=== PATIENT | male | born 1965 | race Caucasian/White ===

== ENCOUNTER 2018-02-12 12:30 | Emergency (ER) | payer MEDICAID, OTHER ==
[2018-02-12 13:08] VITALS: BP 143/77
--- NOTE | 2018-02-12 13:42 | UC ---
Skin Complaint HPI - HPI Summary HPI Summary: 53-year-old male with history of OCD, migraines, kidney stones, presents with 1 week of pain to the left lateral buttock and mid gluteal cleft with swelling in those areas. Pain is sharp, nonradiating, worse with palpation. Associated with redness around those areas. Similar prior episodes. - History of Current Complaint Chief Complaint: UCGeneralIllness Stated Complaint: SKIN COMPLAINT,POSSIBLE HERNIA Pain Intensity: 10 - Allergy/Home Medications Allergies/Adverse Reactions: Allergies Allergy/AdvReac Type Severity Reaction Status Date / Time gabapentin Allergy GI Upset Verified 02/12/18 13:05 sumatriptan [From Imitrex] Allergy Anaphylatic Verified 02/12/18 13:05 Shock Home Medications: Home Medications Budesonide/Formote 80/4.5(NF) [Symbicort 80/4.5 (NF)] 02/12/18 [History] Ibuprofen 800 mg PO Q8H 02/12/18 [History Confirmed 02/12/18] Omeprazole 20 mg PO DAILY 02/12/18 [History Confirmed 02/12/18] Review of Systems Constitutional: Negative Skin: Rash Respiratory: Negative Cardiovascular: Negative Gastrointestinal: Negative Neurovascular: Negative Musculoskeletal: Negative Neurological: Negative Psychological: Anxious All Other Systems Reviewed And Are Negative: Yes PMH/Surg Hx/FS Hx/Imm Hx - Additional Past Medical History Additional PMH: Migraines, OCD Previously Healthy: Yes - Surgical History Surgical History: Yes Surgery Procedure, Year, and Place: KNEE SCOPE. FACIAL RECONSTRUCTION SURGERY - Social History Alcohol Use: None Substance Use Type: None Smoking Status (MU): Heavy Every Day Tobacco Smoker Physical Exam - Summary Physical Exam Summary: Gen: alert, in no acute distress HEENT: EOMI, normocephalic, atruamatic Neck: supple, no masses CV: Normal s1 s2, no murmurs Resp: normal breath sounds b/l GI: no tenderness, no masses : Reducible hernia along the left groin, nontender to palpation, soft Musculoskeletal: normal ROM all 4 extremities Neuro: no obvious focal neurological deficits Skin: Round area of induration and redness consistent with cellulitis on the left buttock measuring approximately 3 cm in diameter; small round area of induration along the upper gluteal cleft without fluctuance Lymph: no lymphadenopathy Psych: appropriate affect, anxious appearing Triage Information Reviewed: Yes Vital Signs: Initial Vital Signs Temp 36.7 C 02/12/18 13:01 Pulse 85 02/12/18 13:01 Resp 21 02/12/18 13:01 BP 143/77 02/12/18 13:01 Pulse Ox 100 02/12/18 13:01 Course/Dx - Course Course Of Treatment: Patient has left-sided buttock and gluteal cleft rash consistent with cellulitis and pilonidal cyst. No fluctuance, rash along the gluteal cleft appears very new without any fluid accumulation. Incision and drainage is not indicated at this time. Patient started on oral antibiotics and given short course of pain medication, patient agrees to and understands discharge instructions. Patient also given referral to general surgery for elective hernia repair. - Diagnoses Provider Diagnoses: Left-sided inguinal reducible hernia without incarceration. Pilonidal cyst. Cellulitis Discharge - Sign-Out/Discharge Documenting (check all that apply): Patient Departure All imaging exams completed and their final reports reviewed: No Studies - Discharge Plan Condition: Stable Disposition: HOME Prescriptions: Cephalexin CAP* [Keflex CAP*] 500 mg PO QID #28 cap oxyCODONE/Acetamin 5/325 MG* [Percocet 5/325 TAB*] 1 tab PO Q6H PRN #8 tab MDD 3 PRN Reason: Pain - Moderate To Severe Sulfamethox/Trimethoprim DS* [Bactrim DS 800/160 TAB*] 1 tab PO BID #14 tab Patient Education Materials: Pilonidal Cyst (ED), Cellulitis (DC) Referrals: Tania Teran MD [Primary Care Provider] - Blu Kong [Medical Doctor] - Additional Instructions: PLEASE TAKE MEDICATIONS DIRECTED PLEASE FINISH FULL COURSE OF ANTIBIOTIC PLEASE MAKE AN APPOINTMENT TO BE SEEN BY A PRIMARY CARE DOCTOR AND GENERAL SURGEON WITHIN 1-2 WEEKS PLEASE REPORT TO THE ER FOR ANY WORSENING OR CONCERNING SYMPTOMS - Billing Disposition and Condition Condition: STABLE Disposition: Home
== END 2018-02-12 13:49 | disposition home or self-care (01) ==
LOC: UCCORT 12:30
DX: K40.90 Unilateral inguinal hernia, without obstruction or gangrene, not specified as recurrent (principal); L05.91 Pilonidal cyst without abscess; L03.317 Cellulitis of buttock; Z88.8 Allergy status to other drugs, medicaments and biological substances; F17.210 Nicotine dependence, cigarettes, uncomplicated
CPT/HCPCS: 99212; G0463

== ENCOUNTER 2018-02-14 13:59 | Emergency (ER) | payer OTHER ==
[2018-02-14 14:42] VITALS: BP 131/86
[2018-02-14] MEDS ORDERED: Lidocaine 1%* 5 ML VIAL INJ ONE (15:10)
--- NOTE | 2018-02-14 15:58 | UC ---
Skin Complaint HPI - HPI Summary HPI Summary: 53-year-old male coming in today because of buttock abscesses. He's been on antibiotics and the overall area is improving. There is an abscess on the left buttock and at the superior aspect of the gluteal cleft. It was not I&D prior as it was too diffuse patient feels that they may be ready for drainage now. No fevers still quite painful. - History of Current Complaint Chief Complaint: UCSkin Time Seen by Provider: 02/14/18 15:02 Stated Complaint: RECHECK-BACK PAIN Pain Intensity: 8 - Allergy/Home Medications Allergies/Adverse Reactions: Allergies Allergy/AdvReac Type Severity Reaction Status Date / Time gabapentin Allergy GI Upset Verified 02/14/18 14:42 sumatriptan [From Imitrex] Allergy Anaphylatic Verified 02/14/18 14:42 Shock Review of Systems Constitutional: Negative Skin: Other - See history of present illness Eyes: Negative ENT: Negative, Dental Pain Cardiovascular: Negative Gastrointestinal: Negative, Other - Chronic left hernia Motor: Negative Neurovascular: Negative Musculoskeletal: Negative Neurological: Negative Psychological: Negative Is Patient Immunocompromised?: No All Other Systems Reviewed And Are Negative: Yes PMH/Surg Hx/FS Hx/Imm Hx - Surgical History Surgical History: Yes Surgery Procedure, Year, and Place: KNEE SCOPE. FACIAL RECONSTRUCTION SURGERY - Family History Known Family History: Positive: Unknown - Social History Alcohol Use: None Substance Use Type: None Smoking Status (MU): Heavy Every Day Tobacco Smoker Physical Exam Triage Information Reviewed: Yes Appearance: Well-Appearing, Pain Distress - MILD Vital Signs: Initial Vital Signs Temp 98.3 F 02/14/18 14:39 Pulse 104 02/14/18 14:39 Resp 18 02/14/18 14:39 BP 131/86 02/14/18 14:39 Pulse Ox 99 02/14/18 14:39 Vital Signs Reviewed: Yes Eye Exam: Normal Eyes: Positive: Conjunctiva Clear Neck exam: Normal Neck: Positive: Supple Respiratory: Positive: No respiratory distress Musculoskeletal Exam: Normal Musculoskeletal: Positive: Strength Intact, No Edema Neurological Exam: Normal Neurological: Positive: Alert Psychological Exam: Normal Psychological: Positive: Normal Response To Family Skin: Positive: Other - Skin infections left buttock and superior gluteal fold. The left buttock has a diameter of approximately 5 cm it swollen and firm in the middle. It does appear that is awake head in the middle of the lesion. It is tender to palpation. At the superior gluteal fold there is a smaller area 2 cm with erythema and there is some WHight in the center Course/Dx - Course Course Of Treatment: I&D was performed of the left buttock abscess. Attempted I &D was performed on the superior gluteal fold lesion. Consent was obtained. Clean the area with Betadine. Using 1% lidocaine locally. Using #11 blade. There was pus and blood drainage from the left buttock abscess. Culture was obtained from there. There was no drainage from the superior gluteal fold lesion. The patient will continue his antibiotics and follow up with his primary care doctor or return here sooner if needed. - Diagnoses Provider Diagnoses: ABSCESS LEFT BUTTOCK Discharge - Sign-Out/Discharge Documenting (check all that apply): Patient Departure All imaging exams completed and their final reports reviewed: No Studies - Discharge Plan Condition: Stable Disposition: HOME Patient Education Materials: Abscess (ED) Referrals: Tania Teran MD [Primary Care Provider] - Additional Instructions: FOLLOW UP WITH YOUR DOCTOR. GET RECHECKED FOR ANY WORSENING OF YOUR CONDITION OR QUESTIONS OR CONCERNS. - Billing Disposition and Condition Condition: STABLE Disposition: Home
== END 2018-02-14 16:11 | disposition home or self-care (01) ==
LOC: UCCORT 13:59
DX: L02.31 Cutaneous abscess of buttock (principal); Z88.8 Allergy status to other drugs, medicaments and biological substances; F17.210 Nicotine dependence, cigarettes, uncomplicated; R21 Rash and other nonspecific skin eruption
CPT/HCPCS: 10060; 87070; 87077; 87186; 87205; 87640; 87641; 99212; G0463

== ENCOUNTER 2018-03-14 16:00 | Emergency (ER) | payer OTHER ==
[2018-03-14 16:53] VITALS: BP 152/87
--- NOTE | 2018-03-14 17:22 | UC ---
Abdominal Pain Male HPI - HPI Summary HPI Summary: 53-year-old male comes in with a left inguinal hernia that's been going on for quite some time and it's bothering him quite a bit giving him pain. Patient has an appointment on March 19, 2018 with his primary care doctor who is in the process of setting up a surgery referral for treatment of the left inguinal hernia. Patient's been able to eat and drink and have normal bowel movements. Coughing makes the hernia worse. Resting and pushing it back in makes it better. Patient recently had cellulitis and abscess on his left buttock and upper buttock cleft. This is cultured which grew back MRSA. The patient had been on Keflex and Bactrim and the MRSA was susceptible to Bactrim and he continue the Bactrim and the infection is completely gone. - History of Current Complaint Chief Complaint: UCGeneralIllness Stated Complaint: HERNIA PAIN Time Seen by Provider: 03/14/18 17:02 Pain Intensity: 9 - Allergies/Home Medications Allergies/Adverse Reactions: Allergies Allergy/AdvReac Type Severity Reaction Status Date / Time gabapentin Allergy GI Upset Verified 03/14/18 16:52 sumatriptan [From Imitrex] Allergy Anaphylatic Verified 03/14/18 16:52 Shock PMH/Surg Hx/FS Hx/Imm Hx Previously Healthy: Yes - MRSA - Surgical History Surgical History: Yes Surgery Procedure, Year, and Place: KNEE SCOPE. FACIAL RECONSTRUCTION SURGERY - Family History Known Family History: Positive: Unknown - Social History Alcohol Use: None Substance Use Type: None Smoking Status (MU): Heavy Every Day Tobacco Smoker Review of Systems Constitutional: Negative Skin: Negative Eyes: Negative ENT: Negative Respiratory: Negative Cardiovascular: Negative Gastrointestinal: Abdominal Pain - SEE HPI Genitourinary: Negative Motor: Negative Neurovascular: Negative Musculoskeletal: Negative Neurological: Negative Is Patient Immunocompromised?: No All Other Systems Reviewed And Are Negative: Yes Physical Exam Triage Information Reviewed: Yes Appearance: Well-Appearing, No Pain Distress, Well-Nourished Vital Signs: Initial Vital Signs Temp 99.1 F 03/14/18 16:46 Pulse 92 03/14/18 16:46 Resp 16 03/14/18 16:46 BP 152/87 03/14/18 16:46 Pulse Ox 98 03/14/18 16:46 Vital Signs Reviewed: Yes Eye Exam: Normal Eyes: Positive: Conjunctiva Clear Neck exam: Normal Neck: Positive: Supple Respiratory: Positive: No respiratory distress Abdomen Description: Positive: Nontender, Soft, Other: - Left inguinal hernia is present. It is easily reducible to exam. It is mildly tender. There is no erythema. Bowel Sounds: Positive: Present Male Genital Exam: Positive: Normal Genitalia Musculoskeletal Exam: Normal Musculoskeletal: Positive: Strength Intact, ROM Intact Neurological Exam: Normal Neurological: Positive: Alert, Muscle Tone Normal Psychological Exam: Normal Psychological: Positive: Age Appropriate Behavior Skin: Positive: Other - The area on the left buttock and the buttock cleft are normal at this time. No signs of infection. Abd Pain Male Course/Dx - Course Course Of Treatment: Patient requests pain medicine for his hernia. He has follow-up scheduled for March 19, 2018 with his primary care doctor to arrange for surgical referral for care of the hernia. No signs of cellulitis at this time. - Differential Dx/Clinical Impression Provider Diagnoses: LEFT INGUINAL HERNIA Discharge - Sign-Out/Discharge Documenting (check all that apply): Patient Departure All imaging exams completed and their final reports reviewed: No Studies - Discharge Plan Condition: Stable Disposition: HOME Prescriptions: oxyCODONE/Acetamin 5/325 MG* [Percocet 5/325 TAB*] 1 tab PO Q6H PRN #20 tab MDD 4 PRN Reason: Pain Patient Education Materials: Inguinal Hernia (ED) Referrals: Tania Teran MD [Primary Care Provider] - Additional Instructions: FOLLOW UP WITH YOUR DOCTOR ON 03/19/18 SCHEDULED. GO TO THE EMERGENCY DEPARTMENT FOR ANY WORSENING OF YOUR CONDITION; PAIN, VOMITING, YOU FEEL ILL OR QUESTIONS OR CONCERNS. - Billing Disposition and Condition Condition: STABLE Disposition: Home
== END 2018-03-14 17:27 | disposition home or self-care (01) ==
LOC: UCCORT 16:00
DX: K40.90 Unilateral inguinal hernia, without obstruction or gangrene, not specified as recurrent (principal); F17.210 Nicotine dependence, cigarettes, uncomplicated; Z88.8 Allergy status to other drugs, medicaments and biological substances
CPT/HCPCS: 99212; G0463

== ENCOUNTER 2018-03-22 12:27 | Emergency (ER) | payer OTHER ==
[2018-03-22 12:46] VITALS: BP 123/87
--- NOTE | 2018-03-22 14:21 | UC ---
Abdominal Pain Male HPI - HPI Summary HPI Summary: Pt presents with request for refill of pain medication. Pt has been seen here at 02/12, 02/14, an d1. Additionally, pt was seen at PCP on 03/19. Pt was diagnosed with pilonidal cyst on 02/12 and given 8 percocets, then 15 on the , then 20 on 03/14. Pt states he is scheduled for appointment iwth DR. Perez on 03/28/18. Pt is again requesting pain medication. I spoke to his PCP nurse and she reported that he did not report that he was in pain on monday at his last visit. [facility] does not show that he has filled the previous RX's. - History of Current Complaint Chief Complaint: UCGeneralIllness Stated Complaint: HERNIA PAIN Time Seen by Provider: 03/22/18 12:49 Hx Obtained From: Patient Onset/Duration: Sudden Onset, Lasting Weeks, Still Present Timing: Constant Severity Initially: Mild Severity Currently: Severe Pain Intensity: 10 Pain Scale Used: 0-10 Numeric Location: Other - left groin Character: Dull, Sharp Aggravating Factor(s): Movement Alleviating Factor(s): Position Associated Signs And Symptoms: Positive: Negative - Risk Factors Testicular Torsion: Negative Cardiac Risk Factors: Negative - Allergies/Home Medications Allergies/Adverse Reactions: Allergies Allergy/AdvReac Type Severity Reaction Status Date / Time gabapentin Allergy GI Upset Verified 03/22/18 12:44 sumatriptan [From Imitrex] Allergy Anaphylatic Verified 03/22/18 12:44 Shock PMH/Surg Hx/FS Hx/Imm Hx Previously Healthy: Yes - Surgical History Surgical History: Yes Surgery Procedure, Year, and Place: KNEE SCOPE. FACIAL RECONSTRUCTION SURGERY - Family History Known Family History: Positive: Unknown, Cardiac Disease - Social History Occupation: Unemployed Lives: With Family Alcohol Use: None Substance Use Type: None Smoking Status (MU): Heavy Every Day Tobacco Smoker Have You Smoked in the Last Year: Yes Review of Systems Constitutional: Negative Skin: Negative Eyes: Negative ENT: Negative Respiratory: Negative Cardiovascular: Negative Gastrointestinal: Negative Genitourinary: Other - inguinal hernia left side Motor: Negative Musculoskeletal: Negative Neurological: Negative Psychological: Negative Is Patient Immunocompromised?: No All Other Systems Reviewed And Are Negative: Yes Physical Exam Triage Information Reviewed: Yes Appearance: Well-Appearing Vital Signs: Initial Vital Signs Temp 98.5 F 03/22/18 12:42 Pulse 92 03/22/18 12:42 Resp 16 03/22/18 12:42 BP 123/87 03/22/18 12:42 Pulse Ox 99 03/22/18 12:42 Vital Signs Reviewed: Yes Eye Exam: Normal ENT Exam: Normal ENT: Positive: Hearing grossly normal Dental Exam: Normal Neck exam: Normal Male Genital Exam: Positive: Hernia Mass - left groin Musculoskeletal Exam: Normal Neurological Exam: Normal Psychological Exam: Normal Skin Exam: Normal Abd Pain Male Course/Dx - Course Course Of Treatment: Pt was instructe dto f/u with surgeon and pcp . I also instructed pt that we can not continue to manage his pain through urgent care and that he needs to continue to f/u with his PCP and/or surgeon. - Differential Dx/Clinical Impression Differential Diagnosis/HQI/PQRI: Other - groin pain Provider Diagnoses: left groin pain Discharge - Sign-Out/Discharge Documenting (check all that apply): Patient Departure All imaging exams completed and their final reports reviewed: No Studies - Discharge Plan Condition: Stable Disposition: HOME Prescriptions: Omeprazole 20 mg PO DAILY #30 capsule. Oxycodone HCl/Acetaminophen [Percocet 2.5-325 mg (NF)] 1 tab PO Q8H PRN #18 tab MDD 3 PRN Reason: Pain Patient Education Materials: Groin Pain (ED) Referrals: Tania Teran MD [Primary Care Provider] - As Soon As Possible Neil Whitley MD [Medical Doctor] - Additional Instructions: PLEASE FOLLOW UP WITH DR. WHITLEY SCHEDULED. PLEASE NOTE WILL WILL NOT REFILL ANY PAIN MEDICATION REQUESTS. PLEASE FOLLOW UP WITH YOUR PCP OPAL. - Billing Disposition and Condition Condition: STABLE Disposition: Home
== END 2018-03-22 13:43 | disposition home or self-care (01) ==
LOC: UCCORT 12:27
DX: K40.90 Unilateral inguinal hernia, without obstruction or gangrene, not specified as recurrent (principal); F17.210 Nicotine dependence, cigarettes, uncomplicated
CPT/HCPCS: 99212; G0463

== ENCOUNTER 2018-06-12 11:48 | Emergency (ER) | payer OTHER ==
[2018-06-12 12:06] VITALS: BP 142/93
--- NOTE | 2018-06-12 12:59 | UC ---
Abdominal Pain Male HPI - HPI Summary HPI Summary: lump left inguinal area x 1 week the area is tender to touch , no fever, no chills, no n/v/d/c, no urinary sx had inguinal hernia repair 4 weeks ago on the left side, - History of Current Complaint Chief Complaint: UCGeneralIllness Stated Complaint: PERSONAL Time Seen by Provider: 06/12/18 12:04 Hx Obtained From: Patient Onset/Duration: Gradual Onset, Lasting Weeks - 1, Still Present Timing: Constant Severity Initially: Moderate Severity Currently: Moderate Pain Intensity: 8 Location: Other - left inguinal area Radiates to: Inguinal Character: Sharp Aggravating Factor(s): Movement Alleviating Factor(s): Nothing Associated Signs And Symptoms: Negative: Diaphoresis, Fever, Cough, Chest Pain, Dizzy, Back Pain, Constipation, Blood in Stool, Urinary Symptoms, Decreased Appetite, Nausea, Vomiting, Diarrhea, Penile Discharge - Allergies/Home Medications Allergies/Adverse Reactions: Allergies Allergy/AdvReac Type Severity Reaction Status Date / Time gabapentin Allergy GI Upset Verified 06/12/18 12:06 sumatriptan [From Imitrex] Allergy Anaphylatic Verified 06/12/18 12:06 Shock Home Medications: Home Medications Albuterol/Ipratropium NEB.JASPREET* [Duoneb (Albuterol 2.5 MG/Ipratropium 0.5 MG)] 1 neb INH Q4H 06/12/18 [History Confirmed 06/12/18] Tetrahydrozoline HCl [Eye Drops] 0.05 % OP 06/12/18 [History] PMH/Surg Hx/FS Hx/Imm Hx - Additional Past Medical History Additional PMH: GERD MIGRAINES CHRONIC KIDNEY STONES Respiratory History: COPD - Surgical History Surgical History: Yes Surgery Procedure, Year, and Place: KNEE SCOPE. FACIAL RECONSTRUCTION SURGERY - Family History Known Family History: Positive: Unknown, Cardiac Disease - Social History Alcohol Use: None Substance Use Type: None Smoking Status (MU): Heavy Every Day Tobacco Smoker Have You Smoked in the Last Year: Yes Review of Systems All Other Systems Reviewed And Are Negative: Yes Constitutional: Positive: Negative Skin: Positive: Negative Eyes: Positive: Negative ENT: Positive: Negative Respiratory: Positive: Negative Is Patient Immunocompromised?: No Physical Exam Triage Information Reviewed: Yes Appearance: Well-Appearing, No Pain Distress, Well-Nourished Vital Signs: Initial Vital Signs Temp 97.9 F 06/12/18 12:02 Pulse 99 06/12/18 12:02 Resp 18 06/12/18 12:02 BP 142/93 06/12/18 12:02 Pulse Ox 98 06/12/18 12:02 Vital Signs Reviewed: Yes Eye Exam: Normal Eyes: Positive: Conjunctiva Clear ENT: Positive: Normal ENT inspection, Hearing grossly normal, Pharynx normal Neck: Positive: Supple, Nontender, No Lymphadenopathy Respiratory: Positive: Chest non-tender, Lungs clear, Normal breath sounds Cardiovascular: Positive: RRR, No Murmur, Pulses Normal Abdomen Description: Positive: Nontender, Soft, Other: - round cystic mass left inguinal area , 2 cm in diameter, tender to touch. Negative: CVA Tenderness (R) , CVA Tenderness (L), Distended, Guarding, Hernia @ Diagnostics - Laboratory Diagnostic Studies Completed/Ordered: US abd limited : IMPRESSION: #. Mildly complex cystic lesion corresponding with the palpable lump at the level of the. LEFT inguinal hernia repair is most suspicious for postoperative seroma or hematoma. Correlate with clinical assessment. Abd Pain Male Course/Dx - Differential Dx/Clinical Impression Provider Diagnosis: Ganglion cyst of left groin Discharge - Sign-Out/Discharge Documenting (check all that apply): Patient Departure All imaging exams completed and their final reports reviewed: Yes - Discharge Plan Condition: Stable Disposition: HOME Patient Education Materials: Hematoma (ED) Referrals: Tania Teran MD [Primary Care Provider] - Additional Instructions: IMPRESSION: #. Mildly complex cystic lesion corresponding with the palpable lump at the level of the LEFT inguinal hernia repair is most suspicious for postoperative seroma or hematoma. Correlate with clinical assessment. please call your surgeon for follow up - Billing Disposition and Condition Condition: STABLE Disposition: Home
== END 2018-06-12 13:03 | disposition home or self-care (01) ==
LOC: UCCORT 11:48
DX: M67.452 Ganglion, left hip (principal); Z88.8 Allergy status to other drugs, medicaments and biological substances; F17.200 Nicotine dependence, unspecified, uncomplicated
CPT/HCPCS: 76705; 99211; G0463